=== PATIENT | female | born 1965 | race Caucasian/White ===

== ENCOUNTER 2017-07-08 12:17 | Emergency (ER) | payer OTHER ==
[~2017-07-08] VITALS: Ht 154.9 cm; Wt 83.9 kg
[2017-07-08 14:04] VITALS: BP 144/69
--- NOTE | 2017-07-08 15:02 | NUR ---
51/F BIB SELF SORE THROAT SINCE WEDNESDAY. CONGESTION AND MEHTA X1. DENIES FEVER. HX SVT. SX ABLASION IN 2010. AX DENIES.
--- NOTE | 2017-07-08 15:14 | NUR ---
Patient discharged with v/s stable. Written and verbal after care instructions given and explained. Patient alert, oriented and verbalized understanding of instructions. Ambulatory with steady gait. All questions addressed prior to discharge. ID band removed. Patient advised to follow up with PMD. Rx of PROMETHAZINE given. Patient educated on indication of medication including possible reaction and side effects. Opportunity to ask questions provided and answered.
[2017-07-08 15:44] VITALS: BP 120/82
== END 2017-07-08 15:14 | disposition home or self-care (01) ==
LOC: MED 12:17
DX: J06.9 Acute upper respiratory infection, unspecified (principal)
CPT/HCPCS: 71010; 99283

== ENCOUNTER 2020-07-28 19:27 | Emergency (ER) | payer BC, SELFPAY ==
[~2020-07-28] VITALS: Ht 152.4 cm; Wt 77.1 kg
[2020-07-28 19:30] VITALS: BP 118/74
--- NOTE | 2020-07-28 19:30 | NUR ---
TO TENT AMBULATORY
--- NOTE | 2020-07-28 20:55 | NUR ---
SEEN AND EXAMINED BY DAMARIS WITH ORDERS, CARRIED OUT.
[2020-07-28] MEDS ORDERED: NACL 0.9% 1,000 ML IV ONE (21:00)
[2020-07-28] MEDS ORDERED: ONDANSETRON 4 MG/2 ML VIAL IVP ONE (21:00)
--- NOTE | 2020-07-28 21:25 | NUR ---
TO BED 2, AMBULATORY
[2020-07-28 21:26] LABS: BASOPHILS # (AUTO) 0.1 K/uL (0.00-0.22); BASOPHILS % (AUTO) 1.6 % (0.0-2.0); EOSINOPHILS # (AUTO) 0.1 K/uL (0-0.4); EOSINOPHILS % (AUTO) 1.6 % (0.0-4.0); HEMATOCRIT 46.1 % (36-48); HEMOGLOBIN 16.1 g/dL (12.0-16.0); LYMPHOCYTES # (AUTO) 0.6 K/uL (2.5-16.5); LYMPHOCYTES % (AUTO) 8.6 % (20.5-51.1); MEAN CORPUSCULAR HEMOGLOBIN 31 pg (27-31); MEAN CORPUSCULAR HGB CONC 35 g/dL (33-37); MEAN CORPUSCULAR VOLUME 90.1 fL (80-94); MONOCYTES # (AUTO) 0.5 K/uL (0.8-1.0); MONOCYTES % (AUTO) 7.4 % (1.7-9.3); NEUTROPHILS # (AUTO) 5.3 K/uL (1.8-7.7); NEUTROPHILS % (AUTO) 80.8 % (42.2-75.2); PLATELET COUNT (AUTO) 203 K/uL (140-450); RED BLOOD CELL COUNT(AUTO) 5.12 MIL/uL (4.20-5.40); RED CELL DISTRIBUTION WIDTH 12.7 % (11.6-13.7); WHITE BLOOD COUNT (AUTO) 6.6 K/uL (4.8-10.8)
[2020-07-28 21:39] LABS: ALBUMIN 3.5 g/dL (3.4-5.0); CREATININE 0.9 mg/dL (0.6-1.3); POTASSIUM 3.6 mmol/L (3.5-5.1); TOTAL BILIRUBIN 0.6 mg/dL (0.0-1.0)
[2020-07-28 21:48] LABS: ANION GAP 11.5 (8-16); CARBON DIOXIDE 29.1 mmol/L (21-32)
[2020-07-29] MEDS ORDERED: KETOROLAC 15 MG/ML VIAL ONE (00:24)
[2020-07-29] MEDS ORDERED: KETOROLAC 30 MG/ML VIAL IVP ONE (00:25)
[2020-07-29 00:49] VITALS: BP 122/78
--- NOTE | 2020-07-29 00:49 | NUR ---
Patient discharged with v/s stable. Written and verbal after care instructions given and explained. Patient alert, oriented and verbalized understanding of instructions. Ambulatory with steady gait. All questions addressed prior to discharge. ID band removed. Patient advised to follow up with PMD. Rx of ZOFRAN, AZITHROMYCIN given. Patient educated on indication of medication including possible reaction and side effects. Opportunity to ask questions provided and answered.
== END 2020-07-29 00:49 | disposition home or self-care (01) ==
LOC: MED 19:27
DX: U07.1 COVID-19 (principal); J12.82 Pneumonia due to coronavirus disease 2019; E86.0 Dehydration; I11.9 Hypertensive heart disease without heart failure; E07.89 Other specified disorders of thyroid
CPT/HCPCS: 36415; 71045; 80053; 83880; 84484; 85025; 96361; 96374; 96375; 99284; J1885; J2405; J7030